=== PATIENT | female | born 1950 | race American Indian/Alaskan Native ===

== ENCOUNTER 2017-06-24 14:13 | Emergency (ER) | payer MEDICARE ==
[2017-06-24 14:47] VITALS: BP 125/86
[2017-06-24] MEDS ORDERED: MAGNESIUM SULFATE 2GM/50ML 2 GM/50 ML BAG IV ONE (16:05)
[2017-06-24] MEDS ORDERED: LASIX IV ONE (16:05)
[2017-06-24] MEDS ORDERED: ATROVENT IH ONE (16:05)
[2017-06-24] MEDS ORDERED: PROVENTIL IH ONE (16:05)
[2017-06-24] MEDS ORDERED: ULTRAM PO ONE (16:07)
--- NOTE | 2017-06-24 16:08 | Emergency Department Report ---
ED General Adult HPI - General Chief complaint: Dyspnea/Respdistress Stated complaint: DIFFICULTY BREATHING Time Seen by Provider: 06/24/17 15:53 Source: patient, EMS (ems notes not available at time of chart dictation), RN notes reviewed, old records reviewed Mode of arrival: Stretcher Limitations: No Limitations - History of Present Illness Initial comments: This is a 67-year-old female. The patient is previously known to this provider. Has a past medical history of COPD and chronic asthma. Patient has an ejection fraction of 40-45%. Patient presents to the ER with a complaint of cough, wheezing, mucus production, shortness of breath. Patient reports that her cough has been worsening over the past few days, and she reports that she is bringing up "strings of yellow mucus." Chronic orthopnea, which is not new, worsening or different. Patient denies leg pain, denies leg swelling, denies dietary indiscretions. Patient also endorses epigastric abdominal pain which radiates down to her lower abdominal region. She denies urinary symptoms. She denies constipation. -: Gradual, days(s) Location: abdomen Radiation: abdomen Severity scale (0 -10): 0 Quality: aching Consistency: intermittent Improves with: rest Worsens with: movement Associated Symptoms: cough, shortness of breath, weakness, other (chest wall pain with coughing) - Related Data Home Medications Medication Instructions Recorded Confirmed Last Taken ALBUTEROL Inhaler [ProAir HFA 2 puff IH QID PRN 04/25/13 04/18/17 06/19/13 07:00 Inhaler] Albuterol Sulfate [Ventolin HFA] 2 puff IH Q4H PRN 04/18/17 04/18/17 Unknown Carvedilol [Coreg] 25 mg PO BID 04/18/17 04/18/17 Unknown Ergocalciferol [Vitamin D2] 1 cap PO QWEEK 04/18/17 04/18/17 Unknown Potassium Chloride 10 meq PO BID 04/18/17 04/18/17 Unknown Previous Rx's Medication Instructions Recorded Last Taken Type Aspirin EC [Aspirin Enteric Coated 81 mg PO QDAY #30 tablet. 02/02/16 Unknown Rx TAB] Nystatin Cream [Mycostatin Cream] 1 applic TP TID 7 Days tube 04/17/17 Unknown Rx Furosemide [Lasix] 20 mg PO BID #30 tablet 04/21/17 Unknown Rx Lisinopril [Zestril TAB] 2.5 mg PO QDAY #30 tablet 04/21/17 Unknown Rx Prednisone [predniSONE 10 mg 10 mg PO .TAPER #1 tab.ds.pk 04/21/17 Unknown Rx (6-Day Pack, 21 Tabs)] QUEtiapine [SEROquel] 25 mg PO Q6H PRN #30 tablet 04/21/17 Unknown Rx glipiZIDE [Glucotrol Xl] 2.5 mg PO DAILY #30 tab.er.24 04/21/17 Unknown Rx oxyCODONE /ACETAMINOPHEN [Percocet 1 tab PO Q6H PRN #14 tablet 04/21/17 Unknown Rx 5/325 mg] risperiDONE [RisperDAL] 1 mg PO DAILY #30 tablet 04/21/17 Unknown Rx traMADol [Ultram 50 MG tab] 50 mg PO QPM #14 tablet 04/21/17 Unknown Rx Albuterol Sulfate [Proair 90 mcg IH Q4HR PRN #2 aer.pow.ba 06/24/17 Unknown Rx Respiclick] Famotidine [Pepcid] 20 mg PO QDAY #30 tablet 06/24/17 Unknown Rx Ipratropium [place] [Atrovent Hfa] 12.9 gm IH Q4HR #2 hfa.aer.ad 06/24/17 Unknown Rx predniSONE [Deltasone] 40 mg PO QDAY #8 tab 06/24/17 Unknown Rx Allergies Allergy/AdvReac Type Severity Reaction Status Date / Time ibuprofen [From Motrin] Allergy Swelling Verified 06/19/13 13:35 Iodinated Contrast- Oral and Allergy Rash Verified 04/01/14 05:05 IV Dye ketorolac tromethamine Allergy Swelling Verified 06/19/13 13:35 [From Toradol] metronidazole [From Flagyl] Allergy Anaphylaxis Verified 06/19/13 13:35 Metronidazole HCl Allergy Anaphylaxis Verified 06/19/13 13:35 [From Flagyl] promethazine HCl Allergy Dizziness Verified 06/19/13 13:35 [From Phenergan] ED Review of Systems ROS: Stated complaint: DIFFICULTY BREATHING Other details as noted in HPI Constitutional: malaise. denies: fever Eyes: denies: vision change Respiratory: shortness of breath, wheezing Cardiovascular: denies: syncope Gastrointestinal: abdominal pain Genitourinary: denies: dysuria Musculoskeletal: as per HPI Skin: as per HPI Neurological: as per HPI, weakness Psychiatric: as per HPI ED Past Medical Hx - Past Medical History Hx Hypertension: Yes Hx Heart Attack/AMI: No Hx Congestive Heart Failure: Yes Hx Diabetes: Yes Hx Deep Vein Thrombosis: No Hx Asthma: Yes Hx COPD: Yes Hx HIV: No Additional medical history: Gout. diverticulitous, C. difficile - Surgical History Hx Coronary Stent: No Hx Pacemaker: No Hx Internal Defibrillator: No Hx Cholecystectomy: Yes Hx Appendectomy: Yes Additional Surgical History: Breast reduction, partial hysterectomy, tonsillectomy, colon resection secondary to diverticulitis - Social History Smoking Status: Never Smoker Substance Use Type: None - Medications Home Medications: Home Medications Medication Instructions Recorded Confirmed Last Taken Type ALBUTEROL Inhaler [ProAir HFA 2 puff IH QID PRN 04/25/13 04/18/17 06/19/13 07: 00 History Inhaler] Aspirin EC [Aspirin Enteric Coated 81 mg PO QDAY #30 tablet. 02/02/16 Unknown Rx TAB] Nystatin Cream [Mycostatin Cream] 1 applic TP TID 7 Days tube 04/17/17 Unknown Rx Albuterol Sulfate [Ventolin HFA] 2 puff IH Q4H PRN 04/18/17 04/18/17 Unknown History Carvedilol [Coreg] 25 mg PO BID 04/18/17 04/18/17 Unknown History Ergocalciferol [Vitamin D2] 1 cap PO QWEEK 04/18/17 04/18/17 Unknown History Potassium Chloride 10 meq PO BID 04/18/17 04/18/17 Unknown History Furosemide [Lasix] 20 mg PO BID #30 tablet 04/21/17 Unknown Rx Lisinopril [Zestril TAB] 2.5 mg PO QDAY #30 tablet 04/21/17 Unknown Rx Prednisone [predniSONE 10 mg 10 mg PO .TAPER #1 tab.ds.pk 04/21/17 Unknown Rx (6-Day Pack, 21 Tabs)] QUEtiapine [SEROquel] 25 mg PO Q6H PRN #30 tablet 04/21/17 Unknown Rx glipiZIDE [Glucotrol Xl] 2.5 mg PO DAILY #30 tab.er.24 04/21/17 Unknown Rx oxyCODONE /ACETAMINOPHEN [Percocet 1 tab PO Q6H PRN #14 tablet 04/21/17 Unknown Rx 5/325 mg] risperiDONE [RisperDAL] 1 mg PO DAILY #30 tablet 04/21/17 Unknown Rx traMADol [Ultram 50 MG tab] 50 mg PO QPM #14 tablet 04/21/17 Unknown Rx Albuterol Sulfate [Proair 90 mcg IH Q4HR PRN #2 aer.pow.ba 06/24/17 Unknown Rx Respiclick] Famotidine [Pepcid] 20 mg PO QDAY #30 tablet 06/24/17 Unknown Rx Ipratropium [place] [Atrovent Hfa] 12.9 gm IH Q4HR #2 hfa.aer.ad 06/24/17 Unknown Rx predniSONE [Deltasone] 40 mg PO QDAY #8 tab 06/24/17 Unknown Rx ED Physical Exam - General Limitations: No Limitations General appearance: alert, in no apparent distress, obese - Head Head exam: Present: atraumatic, normocephalic - Eye Eye exam: Present: normal appearance, EOMI. Absent: nystagmus - ENT ENT exam: Present: normal exam, normal orophraynx, mucous membranes moist, normal external ear exam - Neck Neck exam: Present: normal inspection, full ROM - Respiratory Respiratory exam: Present: respiratory distress, wheezes, rhonchi - Cardiovascular Cardiovascular Exam: Present: regular rate, normal rhythm, normal heart sounds. Absent: systolic murmur, diastolic murmur, rubs, gallop - GI/Abdominal GI/Abdominal exam: Present: soft, normal bowel sounds. Absent: distended, tenderness, guarding, rebound, rigid - Extremities Exam Extremities exam: Present: normal inspection, normal capillary refill. Absent: calf tenderness - Back Exam Back exam: Present: normal inspection, full ROM. Absent: tenderness, CVA tenderness (R), paraspinal tenderness, vertebral tenderness - Neurological Exam Neurological exam: Present: alert, oriented X3, CN II-XII intact, other ( Extraocular movements intact. Tongue midline. No facial droop. Facial sensation intact to light touch in the V1, V2, V3 distribution bilaterally. 5 and 5 strength in 4 extremities.. Sensation is intact to light touch in 4 extremities.). Absent: motor sensory deficit - Psychiatric Psychiatric exam: Present: normal affect, normal mood - Skin Skin exam: Present: warm, dry, intact, normal color. Absent: rash ED Course Vital Signs 06/24/17 06/24/17 06/24/17 14:46 16:56 17:19 Temperature 97.6 F Pulse Rate 63 Respiratory 21 20 Rate Blood Pressure 125/86 [Left] O2 Sat by Pulse 95 Oximetry 06/24/17 18:03 Temperature Pulse Rate Respiratory Rate Blood Pressure [Left] O2 Sat by Pulse 96 Oximetry - Reevaluation(s) Reevaluation #1: 06/24/17 17:14 Differential diagnosis, including but not limited to: COPD exacerbation, congestive heart failure, cardiorenal syndrome, intra-abdominal infection, GERD , gastritis, acute coronary syndrome, urinary tract infection Pulmonary hypertension Assessment and plan: 67-year-old female with multiple medical comorbidities, including COPD, pulmonary hypertension, decreased left ventricular systolic function with an EF of 40-45%, with cough, wheezing, mucus production. Saturating 90-91% on room air. Also complaining of chronic abdominal pain, patient has been seen and evaluated for this in the past. Renal function worse than prior, may be a component of cardiorenal syndrome. Patient's having wheezing as well. Patient will be given albuterol, Atrovent, steroids, Lasix therapy. Doubt intra-abdominal process given documented history of chronic abdominal pain , but will obtain a noncontrast CT scan of the abdomen and pelvis. Urinalysis is pending as well. EKG is pending as well. Oral temperature is pending as well. 06/24/17 17:23 Patient afebrile, EKG is unchanged from prior. Urinalysis is negative. 06/24/17 19:29 Reevaluation #2: 06/24/17 17:42 Patient refused arterial blood gas Reevaluation #3: 06/24/17 19:24 Vital signs have remained stable, patient has not dramatically desaturated, nor has she vomited. X-ray of the chest suggested CHF or pneumonia, however noncontrast CT scan of the abdomen and pelvis demonstrated no evidence of congestive heart failure or pneumonia and the patient's lower lung hough. No murmurs incidental findings were noted. Patient has no epigastric tenderness or vomiting, therefore think pancreatitis is unlikely, she can follow up with outpatient primary care doctor or certified health education specialist for incidental GI findings. Has a surgical history of cholecystectomy. EKG abnormal but unchanged from prior, troponin negative 2. Patient most likely experiencing the normal expected history of her pulmonary hypertension and COPD. She will be discharged with cough medication, breathing medication, she can follow up with outpatient primary care, cardiology/GI, and pulmonology. patient has had KATIA in the past, with a creatinine as high as 2.3; she can follow up for her mild KATIA as an outpatient 06/24/17 19:43 Reevaluation #4: 06/24/17 19:54 troponins negative x 2. patient speaking on a cell phone in no distress in complete sentences. ED Medical Decision Making - Lab Data Result diagrams: 06/24/17 16:26 06/24/17 16:26 Vital Signs 06/24/17 06/24/17 06/24/17 14:46 16:56 17:19 Temperature 97.6 F Pulse Rate 63 Respiratory 21 20 Rate Blood Pressure 125/86 [Left] O2 Sat by Pulse 95 Oximetry Lab Results 06/24/17 06/24/17 06/24/17 Range/Units 16:26 16:26 16:26 WBC 6.0 (4.5-11.0) K/mm3 RBC 4.68 (3.65-5.03) M/mm3 Hgb 14.8 H (10.1-14.3) gm/dl Hct 45.4 H (30.3-42.9) % MCV 97 (79-97) fl MCH 32 (28-32) pg MCHC 33 (30-34) % RDW 14.0 (13.2-15.2) % Plt Count 108 L (140-440) K/mm3 [place] % (Auto) [employer] PT 13.8 (12.2-14.9) Sec. INR 1.01 (0.87-1.13) APTT 27.3 (24.2-36.6) Sec. Sodium 144 (137-145) mmol/L Potassium 4.0 (3.6-5.0) mmol/L Chloride 97.6 L (98-107) mmol/L Carbon Dioxide 30 (22-30) mmol/L Anion Gap 20 mmol/L BUN 28 H (7-17) mg/dL Creatinine 1.6 H (0.7-1.2) mg/dL Estimated GFR 39 ml/min BUN/Creatinine Ratio 18 % Glucose 86 (65-100) mg/dL Calcium 8.8 (8.4-10.2) mg/dL Troponin T (0.00-0.029) ng/mL 06/24/17 Range/Units 16:26 WBC (4.5-11.0) K/mm3 RBC (3.65-5.03) M/mm3 Hgb (10.1-14.3) gm/dl Hct (30.3-42.9) % MCV (79-97) fl MCH (28-32) pg MCHC (30-34) % RDW (13.2-15.2) % Plt Count (140-440) K/mm3 [place] % (Auto) PT (12.2-14.9) Sec. INR (0.87-1.13) APTT (24.2-36.6) Sec. Sodium (137-145) mmol/L Potassium (3.6-5.0) mmol/L Chloride (98-107) mmol/L Carbon Dioxide (22-30) mmol/L Anion Gap mmol/L BUN (7-17) mg/dL Creatinine (0.7-1.2) mg/dL Estimated GFR ml/min BUN/Creatinine Ratio % Glucose (65-100) mg/dL Calcium (8.4-10.2) mg/dL Troponin T < 0.010 (0.00-0.029) ng/mL - EKG Data EKG shows normal: sinus rhythm - EKG Data 06/24/17 19:09 Sinus, 66 bpm, left axis, QTC prolonged, abnormal EKG, not morphologically consistent with ST elevation myocardial infarction, motion artifact, appears unchanged from prior EKG from 04/18/2017 - Radiology Data Radiology results: report reviewed, image reviewed interpreted by me: X-rays a chest colon, interpreted by this provider. Cardiomegaly, right-sided port noted, mild pulmonary vascular congestion. Referring Physician: LATASHA DEL VALLE Patient Name: NANCY ECHEVERRIA Date of : 1950 Sex: Female Report Date: 2017-06-24 Report Status: Finalized Findings [facility] [address] [place] [address] Cat Scan Report Signed Patient: NANCY ECHEVERRIA MR#: [id number] : 1950 Acct:[id number] Age/Sex: 67 / F ADM Date: 06/24/17 Loc: ED Attending Dr: Ordering Physician: LATASHA DEL VALLE MD Date of Service: 06/24/17 Procedure(s): CT abdomen pelvis wo con Accession Number(s): [id number] cc: LATASHA DEL VALLE MD FINAL REPORT PROCEDURE: CT ABDOMEN PELVIS WO CON TECHNIQUE: Computerized axial tomography of the abdomen and pelvis was performed without intravenous contrast. This study is performed without intravascular contrast material and its sensitivity for abdominal and pelvic pathology, including neoplasms, inflammation, abscess, free fluid, thrombosis, arterial dissection and infarction, is reduced compared with a contrast enhanced study. DLP 2015.13 mGy-cm. HISTORY: Abdominal pain. COMPARISON: No prior studies are available for comparison. FINDINGS: Visualized lower thorax: Inferior aspect of central venous catheter in the distal SVC/cavoatrial junction. Mild cardiomegaly. Coronary artery disease. Mild elevation of the right diaphragm. Possible ill-defined 2-3 millimeter nodules in the right upper lobe adjacent to the fissure, in the periphery of the lingula, and in the periphery of the bilateral lower lobes. Liver: Normal size and attenuation. Spleen: Normal size and attenuation. Gallbladder and biliary system: Gallbladder not seen, consider correlating clinically with surgical history of cholecystectomy. Pancreas: Possible subtle low-attenuation and enlargement about the pancreatic head. Adrenals: Normal. Kidneys: Normal. GI tract: Moderate fatty infiltration of the cecum and ascending colon. A normal appendix is not confidently identified. Diverticulosis. 4.2 cm air-filled structure about the gastric antrum. Lymph nodes and mesentery: Small periaortic and mesenteric lymph nodes. Vasculature: Mild atherosclerosis. Bladder: Normal. Reproductive organs: Hysterectomy. Peritoneum: No free fluid. Musculoskeletal structures: Osteopenia. Small multilevel osteophytes. Moderate L2 superior endplate compression, age indeterminate.. Other: Subcutaneous/flank calcifications likely injection granulomas. Anterior abdominal wall diastasis. IMPRESSION: Mild cardiomegaly. Mild coronary artery disease. Pulmonary nodules, indeterminate. Consider correlation with dedicated thoracic imaging. Possible subtle low-attenuation and enlargement about the pancreatic head, consider examination with iv contrast or MRI for further evaluation if there is continued clinical concern for pancreatic pathology. Also consider correlating with lipase values. Moderate fatty infiltration of the cecum and ascending colon, can be seen with obesity, steroid usage, also consider colitis. Diverticulosis. 4.2 centimeter air-filled structure about the gastric antrum, consider gastric diverticulum. Limited evaluation on non contrasted evaluation, less likely consider localized air containing structure. Consider examination with oral contrast if there is continued clinical concern. Normal appendix not confidently seen. No secondary signs of acute appendicitis. Consider correlation with surgical history and further evaluation and followup including examination with oral contrast if this is of continued clinical concern. Transcribed By: ANITHA Dictated By: BLAYNE MARQUEZ MD Electronically Authenticated By: BLAYNE MARQUEZ MD Signed Date/Time: 06/24/17 6884 Critical care attestation.: If time is entered above; I have spent that time in minutes in the direct care of this critically ill patient, excluding procedure time. ED Disposition Clinical Impression: Bronchitis Disposition: DC-01 TO HOME OR SELFCARE Is pt being admited?: No Does the pt Need Aspirin: No Condition: Stable Instructions: Chronic Bronchitis (ED) Additional Instructions: Symptoms most likely coming from acute on chronic chronic bronchitis, which is likely secondary to the patient's underlying history of COPD and pulmonary hypertension. Continue current outpatient breathing medications outpatient prescribed medications, take albuterol, Atrovent every 4-6 hours for the next 5 days, and take the steroids as directed as well. Avoid consumption of heavy, spicy foods, and follow up with either an outpatient primary care doctor or pulmonary doctor for the cough, breathing and mucus production within the next 7 -[address] Turpin is a local primary care doctor. Dr. Tovar is a local science specialist. CT scan of the abdomen and pelvis also demonstrated nonspecific lesions on the lungs, this should be followed up by her primary care doctor or pulmonary doctor as recommended, not following up as recommended may result in undiagnosed tumor, cancer, malignancy. CT scan of the abdomen and pelvis demonstrated calcifications in the coronary arteries, therefore the patient should follow-up with a dye house helper within the next week. Dr. Don is a local document design specialist. CT scan of the abdomen and pelvis also demonstrated nonspecific pancreatic abnormalities, as well as abnormalities in the stomach. Patient should follow up with outpatient primary care doctor or gastroenterology for this within the next month. Dr. Elias is a local gastroenterology specialist. Not following up for incidental abnormalities noted on CAT scan in the GI system may result in undiagnosed tumor, cancer, malignancy. Therefore it is very important to follow-up as recommended. Return to the ER right away with new pain, worsened pain, migration of pain, fevers, chills, lethargy, irritability, projectile vomiting, change in mental status, confusion, inability to tolerate liquid feeds. Prescriptions: Albuterol Sulfate [Proair Respiclick] 90 mcg IH Q4HR PRN #2 aer.pow.ba PRN Reason: Wheezing Famotidine [Pepcid] 20 mg PO QDAY #30 tablet Ipratropium [place] [Atrovent Hfa] 12.9 gm IH Q4HR #2 hfa.aer.ad predniSONE [Deltasone] 40 mg PO QDAY #8 tab Referrals: PRIMARY CARE, [Primary Care Provider] - 3-5 Days KARISSA DON MD [Staff Physician] - 3-5 Days LOUIS MARES MD [Staff Physician] - 3-5 Days HELDER ELIAS MD [Staff Physician] - 3-5 Days HI TURPIN MD [Staff Physician] - 3-5 Days
[2017-06-24 16:49] LABS: Hematocrit 45.4 % (30.3-42.9); Hemoglobin 14.8 gm/dl (10.1-14.3); Mean Corpuscular HGB Conc 33 % (30-34); Mean Corpuscular Hemoglobin 32 pg (28-32); Mean Corpuscular Volume 97 fl (79-97); Platelet Count 108 K/mm3 (140-440); Red Blood Count 4.68 M/mm3 (3.65-5.03)
[2017-06-24 17:00] LABS: INR 1.01 (0.87-1.13); Partial Thromboplastin Time 27.3 Sec. (24.2-36.6)
[2017-06-24 17:11] LABS: Calcium 8.8 mg/dL (8.4-10.2); Chloride 97.6 mmol/L (98-107)
[2017-06-24 17:34] LABS: Basophils % (Manual) 0 % (0.0-1.8); Blastocytes % (Manual) 0 %
[2017-06-24 17:36] LABS: Anisocytosis 1+; Diff Status Complete; Ovalocytes Rare; Platelet Estimate Consistent w Auto; Tear Drop Cells Rare
[2017-06-24 17:53] LABS: Bacteria,Urine 2+ /HPF (Negative); Bilirubin,Urine NEG (Negative); Blood,Urine NEG (Negative); Ketones,Urine NEG (Negative); Leukocyte Esterase,Urine NEG (Negative); Mucus,Urine FEW /HPF; Nitrite,Urine NEG (Negative); Protein,Urine <15 mg/dL mg/dL (Negative); Urobilinogen,Urine < 2.0 mg/dL (<2.0)
--- NOTE | 2017-06-24 18:31 | XRay Report ---
FINAL REPORT PROCEDURE: XR CHEST 1V AP TECHNIQUE: Chest radiograph anteroposterior view. CPT 30335 HISTORY: Dyspnea. COMPARISON: No prior studies are available for comparison. FINDINGS: Heart: Heart size top-normal. Mediastinum/Vessels: Normal. Lungs/Pleural space: Mild perihilar indistinctness. Left greater than right bibasilar opacities. Blunting of the left costophrenic angle. Bony thorax: No acute osseous abnormality. Life support devices: Central venous catheter tip at the cavoatrial junction. IMPRESSION: Heart size top-normal. Mild perihilar indistinctness with left greater than right bibasilar opacities and small left pleural effusion. Consider mild congestive heart failure with atelectasis, cannot exclude pneumonia.
--- NOTE | 2017-06-24 19:19 | Cat Scan Report ---
FINAL REPORT PROCEDURE: CT ABDOMEN PELVIS WO CON TECHNIQUE: Computerized axial tomography of the abdomen and pelvis was performed without intravenous contrast. This study is performed without intravascular contrast material and its sensitivity for abdominal and pelvic pathology, including neoplasms, inflammation, abscess, free fluid, thrombosis, arterial dissection and infarction, is reduced compared with a contrast enhanced study. DLP 2015.13 mGy-cm. HISTORY: Abdominal pain. COMPARISON: No prior studies are available for comparison. FINDINGS: Visualized lower thorax: Inferior aspect of central venous catheter in the distal SVC/cavoatrial junction. Mild cardiomegaly. Coronary artery disease. Mild elevation of the right diaphragm. Possible ill-defined 2-3 millimeter nodules in the right upper lobe adjacent to the fissure, in the periphery of the lingula, and in the periphery of the bilateral lower lobes. Liver: Normal size and attenuation. Spleen: Normal size and attenuation. Gallbladder and biliary system: Gallbladder not seen, consider correlating clinically with surgical history of cholecystectomy. Pancreas: Possible subtle low-attenuation and enlargement about the pancreatic head. Adrenals: Normal. Kidneys: Normal. GI tract: Moderate fatty infiltration of the cecum and ascending colon. A normal appendix is not confidently identified. Diverticulosis. 4.2 cm air-filled structure about the gastric antrum. Lymph nodes and mesentery: Small periaortic and mesenteric lymph nodes. Vasculature: Mild atherosclerosis. Bladder: Normal. Reproductive organs: Hysterectomy. Peritoneum: No free fluid. Musculoskeletal structures: Osteopenia. Small multilevel osteophytes. Moderate L2 superior endplate compression, age indeterminate.. Other: Subcutaneous/flank calcifications likely injection granulomas. Anterior abdominal wall diastasis. IMPRESSION: Mild cardiomegaly. Mild coronary artery disease. Pulmonary nodules, indeterminate. Consider correlation with dedicated thoracic imaging. Possible subtle low-attenuation and enlargement about the pancreatic head, consider examination with iv contrast or MRI for further evaluation if there is continued clinical concern for pancreatic pathology. Also consider correlating with lipase values. Moderate fatty infiltration of the cecum and ascending colon, can be seen with obesity, steroid usage, also consider colitis. Diverticulosis. 4.2 centimeter air-filled structure about the gastric antrum, consider gastric diverticulum. Limited evaluation on non contrasted evaluation, less likely consider localized air containing structure. Consider examination with oral contrast if there is continued clinical concern. Normal appendix not confidently seen. No secondary signs of acute appendicitis. Consider correlation with surgical history and further evaluation and followup including examination with oral contrast if this is of continued clinical concern.
== END 2017-06-24 20:00 | disposition home or self-care (01) ==
LOC: ED 14:13
DX: J40 Bronchitis, not specified as acute or chronic (principal); I10 Essential (primary) hypertension; E11.9 Type 2 diabetes mellitus without complications; J45.909 Unspecified asthma, uncomplicated; R10.13 Epigastric pain; J44.9 Chronic obstructive pulmonary disease, unspecified; Z88.8 Allergy status to other drugs, medicaments and biological substances; Z79.82 Long term (current) use of aspirin
CPT/HCPCS: 36415; 71010; 74176; 80048; 81001; 83880; 84484; 85007; 85025; 85610; 85730; 87086; 87186; 93005; 94644; 96365; 96375; 99285; J1940; J3475

== ENCOUNTER 2017-11-06 08:01 | Emergency (ER) | payer MEDICARE ==
--- NOTE | 2017-11-06 09:19 | Emergency Department Report ---
ED CPR HPI - General Stated Complaint: CARDIAC ARREST Time Seen by Provider: 11/06/17 08:15 Source: EMS Mode of arrival: Stretcher Limitations: Other - History of Present Illness Initial Comments: According to EMS report, patient was found to unresponsive and asystolic at home. Patient is on hospice. She was diagnosed with bowel obstruction in the past and she refuses surgery. The paramedics started CPR and intubated patient on the field. Associated pain was also given prior to arrival to the ED. When the patient arrived in the ED, she was still asystolic and unresponsive. CPR was continued in the ED and patient was given another round of epinephrine and 1 amp of bicarbonate. She remained asystolic and her pupils were fixed and dilated. CPR was continued for a total of additional 9 minutes without success. Patient was pronounced at 7:59 AM. I spoke with her who came to the hospital and informed him about patients . Patient said he had workup this morning and noticed that the patient was unconscious and gasping for air. He then called 911. He also said he was not surprised about the since the patient had refused surgery for bowel obstruction and wanted to to be allowed to if it comes to that. She does not want to suffer. MD Complaint: found unresponsive -: unknown Bystander CPR Performed: Yes (EMS) Initial Findings in the Field: unresponsive, no pulse ROSC in the Field: No Associated Injuries: No Treatments Prior to Arrival: intubation, BMV, chest compressions, defribrillated shocks #, epinephrine mgs # - Related Data Home Medications Medication Instructions Recorded Confirmed Last Taken ALBUTEROL Inhaler [ProAir HFA 2 puff IH QID PRN 04/25/13 09/29/17 1 Day Ago Inhaler] ~09/28/17 Albuterol Sulfate [Ventolin HFA] 2 puff IH Q4H PRN 04/18/17 09/29/17 1 Day Ago ~09/28/17 Ergocalciferol [Vitamin D2] 1 cap PO QWEEK 04/18/17 09/29/17 1 Day Ago ~09/28/17 Potassium Chloride 10 meq PO BID 04/18/17 09/29/17 1 Day Ago ~09/28/17 Previous Rx's Medication Instructions Recorded Last Taken Type Aspirin EC [Aspirin Enteric Coated 81 mg PO QDAY #30 tablet. 02/02/16 1 Day Ago Rx TAB] ~09/28/17 Nystatin Cream [Mycostatin Cream] 1 applic TP TID 7 Days tube 04/17/17 Unknown Rx Furosemide [Lasix] 20 mg PO BID #30 tablet 04/21/17 1 Day Ago Rx ~09/28/17 QUEtiapine [SEROquel] 25 mg PO Q6H PRN #30 tablet 04/21/17 1 Day Ago Rx ~09/28/17 glipiZIDE [Glucotrol Xl] 2.5 mg PO DAILY #30 tab.er.24 04/21/17 1 Day Ago Rx ~09/28/17 risperiDONE [RisperDAL] 1 mg PO DAILY #30 tablet 04/21/17 1 Day Ago Rx ~09/28/17 Albuterol Sulfate [Proair 90 mcg IH Q4HR PRN #2 aer.pow.ba 06/24/17 1 Day Ago Rx Respiclick] ~09/28/17 Ipratropium High View [Atrovent Hfa] 12.9 gm IH Q4HR #2 hfa.aer.ad 06/24/17 1 Day Ago Rx ~09/28/17 Ipratropium/Albuterol Sulfate 1 ampul IH TIDRT #30 ampul.neb 10/06/17 Unknown Rx [DUONEB *Not for PRN Use*] Levofloxacin [Levaquin TAB] 750 mg PO Q24H #30 tablet 10/06/17 Unknown Rx Metoprolol Xl [Metoprolol 50 mg PO QDAY #30 tablet 10/06/17 Unknown Rx SUCCINATE ER TAB] Pantoprazole [Protonix TAB] 40 mg PO QDAY #30 tablet 10/06/17 Unknown Rx Allergies Allergy/AdvReac Type Severity Reaction Status Date / Time ibuprofen [From Motrin] Allergy Swelling Verified 06/19/13 13:35 Iodinated Contrast- Oral and Allergy Rash Verified 04/01/14 05:05 IV Dye ketorolac tromethamine Allergy Swelling Verified 06/19/13 13:35 [From Toradol] metronidazole [From Flagyl] Allergy Anaphylaxis Verified 06/19/13 13:35 Metronidazole HCl Allergy Anaphylaxis Verified 06/19/13 13:35 [From Flagyl] promethazine HCl Allergy Dizziness Verified 06/19/13 13:35 [From Phenergan] ED Review of Systems ROS: Stated complaint: CARDIAC ARREST Other details as noted in HPI Comment: Unobtainable due to pts medical conditions ED Past Medical Hx - Past Medical History Hx Hypertension: Yes Hx Heart Attack/AMI: No Hx Congestive Heart Failure: Yes Hx Diabetes: Yes Hx Deep Vein Thrombosis: No Hx Asthma: Yes Hx COPD: Yes Hx HIV: No Additional medical history: Gout. diverticulitous, C. difficile - Surgical History Hx Coronary Stent: No Hx Pacemaker: No Hx Internal Defibrillator: No Hx Cholecystectomy: Yes Hx Appendectomy: Yes Hx Breast Surgery: Yes (breast reduction) Additional Surgical History: Breast reduction, partial hysterectomy, tonsillectomy, colon resection secondary to diverticulitis - Social History Smoking Status: Unknown if ever smoked - Medications Home Medications: Home Medications Medication Instructions Recorded Confirmed Last Taken Type ALBUTEROL Inhaler [ProAir HFA 2 puff IH QID PRN 04/25/13 09/29/17 1 Day Ago History Inhaler] ~09/28/17 Aspirin EC [Aspirin Enteric Coated 81 mg PO QDAY #30 tablet.dr 02/02/16 1 Day Ago Rx TAB] ~09/28/17 Nystatin Cream [Mycostatin Cream] 1 applic TP TID 7 Days tube 04/17/17 Unknown Rx Albuterol Sulfate [Ventolin HFA] 2 puff IH Q4H PRN 04/18/17 09/29/17 1 Day Ago History ~09/28/17 Ergocalciferol [Vitamin D2] 1 cap PO QWEEK 04/18/17 09/29/17 1 Day Ago History ~09/28/17 Potassium Chloride 10 meq PO BID 04/18/17 09/29/17 1 Day Ago History ~09/28/17 Furosemide [Lasix] 20 mg PO BID #30 tablet 04/21/17 09/29/17 1 Day Ago Rx ~09/28/17 QUEtiapine [SEROquel] 25 mg PO Q6H PRN #30 tablet 04/21/17 09/29/17 1 Day Ago Rx ~09/28/17 glipiZIDE [Glucotrol Xl] 2.5 mg PO DAILY #30 tab.er.24 04/21/17 09/29/17 1 Day Ago Rx ~09/28/17 risperiDONE [RisperDAL] 1 mg PO DAILY #30 tablet 04/21/17 09/29/17 1 Day Ago Rx ~09/28/17 Albuterol Sulfate [Proair 90 mcg IH Q4HR PRN #2 aer.pow.ba 06/24/17 09/29/17 1 Day Ago Rx Respiclick] ~09/28/17 Ipratropium High View [Atrovent Hfa] 12.9 gm IH Q4HR #2 hfa.aer.ad 06/24/17 1 Day Ago Rx ~09/28/17 Ipratropium/Albuterol Sulfate 1 ampul IH TIDRT #30 ampul.neb 10/06/17 Unknown Rx [DUONEB *Not for PRN Use*] Levofloxacin [Levaquin TAB] 750 mg PO Q24H #30 tablet 10/06/17 Unknown Rx Metoprolol Xl [Metoprolol 50 mg PO QDAY #30 tablet 10/06/17 Unknown Rx SUCCINATE ER TAB] Pantoprazole [Protonix TAB] 40 mg PO QDAY #30 tablet 10/06/17 Unknown Rx ED Physical Exam - General Limitations: Other (Unresponsive with CPR in progress.) - Head Head exam: Present: atraumatic, normocephalic - Eye Eye exam: Present: other (Fixed and dilated) - Respiratory Respiratory exam: Present: other (Breath sounds bilaterally with bagging.) - Cardiovascular Cardiovascular Exam: Present: other (asystolic) - GI/Abdominal GI/Abdominal exam: Present: soft - Extremities Exam Extremities exam: Present: normal inspection, other (IO in left tibia inserted by EMS.) - Skin Skin exam: Present: dry, intact Critical care attestation.: If time is entered above; I have spent that time in minutes in the direct care of this critically ill patient, excluding procedure time. ED Disposition Clinical Impression: Cardiac arrest Disposition: [id number] Is pt being admited?: No Does the pt Need Aspirin: No Condition: Critical
[2017-11-06] MEDS ORDERED: ADRENALIN ONE (14:31)
[2017-11-06] MEDS ORDERED: SODIUM BICARBONATE IV ONE (14:31)
== END 2017-11-06 10:38 ==
LOC: ED 08:01
DX: I46.9 Cardiac arrest, cause unspecified (principal); I11.0 Hypertensive heart disease with heart failure; I50.9 Heart failure, unspecified; E11.9 Type 2 diabetes mellitus without complications; J44.9 Chronic obstructive pulmonary disease, unspecified; M10.9 Gout, unspecified; Z90.49 Acquired absence of other specified parts of digestive tract; Z90.710 Acquired absence of both cervix and uterus; Z90.89 Acquired absence of other organs; Z88.6 Allergy status to analgesic agent; Z91.041 Radiographic dye allergy status; Z88.8 Allergy status to other drugs, medicaments and biological substances
CPT/HCPCS: 92950; 99285; J0171